=== PATIENT | female | born 1955 | race Caucasian/White ===

== ENCOUNTER 2023-06-08 11:25 | Outpatient (AMB) | payer MEDICARE, SELFPAY ==
--- NOTE | 2023-06-08 12:16 | AM.OFFWIN_ITS ---
Intake Vital Signs 06/08/23 12:18 Weight 175 lb BP 140/90 H Blood Pressure Location Lt brachial Position Sitting Pulse 82 Pulse Source Pulse Oximeter Temp 98.1 F Temp Source Oral Pulse Oximetry (%) 92 Oxygen Delivery Method Room Air Intake Visit Reasons: EP cough body aches fatigue Intake Note: Patient here for cough,chills, weakness,headaches and fatigued. pt states she was in a urgent care earlier this week and was given benzonatate and prednisone. Patient Tobacco Use Status: Never used Tobacco Allergies sulfamethoxazole [From Bactrim] Adverse Reaction (Mild, Verified 06/08/23 12:21) Hives trimethoprim [From Bactrim] Adverse Reaction (Mild, Verified 06/08/23 12:21) Hives Do you need a note to return to daycare/school/sports/work: No HPI HPI Comments History of Present Illness Details 68 y/o female patient who presents to [facility] with c/o cough and fatigue for 1 week. She was seen at an in [place] and given Benzona and Prednisone, SHe reports no improvement. Xray was done Tuesday which was negative. Denies fevers or body chills. PFSH Social History Patient Tobacco Use Status: Never used Tobacco Review of Systems Const All systems reviewed & are unremarkable except as noted in HPI and below Physical Exam Vital Signs: Last Vital Signs Temp 98.1 F 06/08/23 12:18 Pulse 82 06/08/23 12:18 BP 140/90 H 06/08/23 12:18 Pulse Ox 92 06/08/23 12:18 Oxygen Delivery Method Room Air 06/08/23 12:18 Const General: comfortable and no acute distress HEENT Head: Yes normocephalic Ears: external ears normal and TM's normal bilaterally General nose exam: Normal nares present Face and sinus: Yes sinuses nontender Mouth: moist mucous membranes Throat: Yes posterior oropharynx normal Resp Effort & Inspection: normal respiratory effort, able to speak in complete sentences and Actively coughing Auscultation: clear to auscultation bilaterally, no crackles, no rales, no rhonchi and no wheezes Cardio Rate: regular rate Rhythm: regular rhythm Assessment & Plan Assessment & Plan (1) Cough in adult: Code(s): R05.9 - Cough, unspecified Plan: - Rest - Hydrate with warm fluids - OTC Cough remedies - Zpack as directed. Orders: Orders SARS-CoV2/FLU/RSV Today R05.9 - Cough, unspecified Medications: New acetaminophen-codeine 120-12 mg/5 mL 5 mL PO BEDTIME 473 mL 0RF R05.9 - Cough, unspecified azithromycin 500 mg PO DAILY 3 days 3 tabs 0RF R05.9 - Cough, unspecified Coding Level of Care Code Est Pt Level 3 (81515) Diagnoses Cough in adult R05.9 Time Spent (min) 15
[2023-06-08 12:18] VITALS: BP 140/90; PULSE 82; TEMP 36.7; O2SAT 92
== END 2023-06-08 13:13 | disposition home or self-care (01) ==
PROVIDERS: Visit Provider Nurse Practitioner Family
DX: R05.9 Cough, unspecified (principal)
CPT/HCPCS: 99213

== ENCOUNTER 2023-06-08 12:48 | Outpatient (REF) | payer MEDICARE, SELFPAY ==
[2023-06-08 16:14] LABS: Influenza A PCR NEGATIVE (Negative); Influenza B PCR NEGATIVE (Negative); Resp Syncy Virus RNA Qual PCR NEGATIVE (Negative); SARS COV2 PCR INHOUSE NEGATIVE (Negative)
== END 2023-06-08 12:49 | disposition home or self-care (01) ==
LOC: HO.LAB 12:48
PROVIDERS: Visit Provider Nurse Practitioner Family
DX: Z11.52 Encounter for screening for COVID-19 (principal); Z20.822 Contact with and (suspected) exposure to COVID-19; R05.9 Cough, unspecified
CPT/HCPCS: 0241U